=== PATIENT | female | born 1960 | race Two or more races ===

== ENCOUNTER 2023-08-13 08:20 | Emergency (ER) | payer MEDICAID ==
[~2023-08-13] VITALS: Ht 157.5 cm; Wt 67.8 kg
[2023-08-13 08:41] VITALS: BP 156/72; PULSE 80; RESP 18; TEMP 97.4; O2SAT 100
[2023-08-13] MEDS ORDERED: HYDR-3965 PO (10:23)
[2023-08-13] MEDS ORDERED: IBUP-1984 PO (10:23)
[2023-08-13] MEDS ORDERED: PENI500T2 PO (10:23)
[2023-08-13] MEDS ORDERED: CefTRIAXone 1000mg IM Kit (w/lidocaine diluent) IM ONE (12:20)
== END 2023-08-13 11:19 | disposition home or self-care (01) ==
LOC: ER 08:21
DX: K04.7 Periapical abscess without sinus (principal)
CPT/HCPCS: 99283

== ENCOUNTER 2023-09-09 15:01 | Emergency (ER) | payer MEDICAID ==
[~2023-09-09] VITALS: Ht 157.5 cm; Wt 67.7 kg
[~2023-09-09 15:01] MED LIST: IBUP-1984 PO
[2023-09-09] MEDS ORDERED: ipratropium/albuterol 3ml nebule NEB ONE (15:25)
[2023-09-09 15:33] VITALS: PULSE 108; RESP 6; O2SAT 98
[2023-09-09 15:42] VITALS: PULSE 109; RESP 16; O2SAT 99
[2023-09-09 15:58] VITALS: BP 125/74; PULSE 109; RESP 17; O2SAT 98
[2023-09-09] MEDS ORDERED: PRED20TA PO (16:45)
[2023-09-09 17:00] VITALS: TEMP 97.7
== END 2023-09-09 17:02 | disposition home or self-care (01) ==
LOC: ER 15:01
DX: J20.9 Acute bronchitis, unspecified (principal)
CPT/HCPCS: 71045; 94640; 94760; 99283

== ENCOUNTER 2023-09-14 19:36 | Emergency (ER) | payer MEDICAID ==
[~2023-09-14] VITALS: Ht 154.9 cm; Wt 70.1 kg
[~2023-09-14 19:36] MED LIST changes: -IBUP-1984 PO; +PRED20TA PO
[2023-09-14 20:01] VITALS: TEMP 97.7
[2023-09-14] MEDS ORDERED: ondansetron 4mg rapidly disintigrating tab PO ONE (22:50)
[2023-09-14 23:17] VITALS: BP 101/64; PULSE 103; RESP 16; O2SAT 99
[2023-09-14] MEDS ORDERED: ALB0.5UD IH (23:19)
[2023-09-14] MEDS ORDERED: ONDA4TAB12 PO (23:19)
== END 2023-09-14 23:24 | disposition home or self-care (01) ==
LOC: ER 19:37
DX: J20.9 Acute bronchitis, unspecified (principal); R11.0 Nausea; R05.9 Cough, unspecified
CPT/HCPCS: 99283